=== PATIENT | male | born 1980 | race Caucasian/White ===

== ENCOUNTER 2017-11-14 11:48 | Emergency (ER) | payer SELFPAY ==
[2017-11-14] MEDS ORDERED: predniSONE 20 MG TAB ONE (13:56)
--- NOTE | 2017-11-14 13:57 | EDPHYS ---
Physician Documentation [facility] Name: Valentín Ho Age: 37 yrs Sex: Male : 1980 Arrival Date: 11/14/2017 Time: 11:51 Bed 18 Private MD: None, None ED Physician Narinder Sanders HPI: 11/14 13:51 This 37 yrs old Male presents to ER via Ambulatory with complaints of Hand gretchen Pain. 13:51 The patient or guardian reports decreased range of motion, pain. The complaints affect gretchen the right hand diffusely, dorsum of right hand and dorsal aspect of right wrist. Context: The problem was sustained at home, resulted from an unknown cause, sleeping on it, all night. Onset: The symptoms/episode began/occurred today. Modifying factors: The symptoms are alleviated by holding still, the symptoms are aggravated by movement. Associated signs and symptoms: The patient has no apparent associated signs or symptoms. Severity of symptoms: At their worst the symptoms were mild, moderate, in the emergency department the symptoms are unchanged. The patient has not experienced similar symptoms in the past. Historical: - Allergies: 12:03 No Known Allergies; aj - Home Meds: 12:03 None [Active]; aj - PMHx: 12:03 Chronic pain; aj - PSHx: 12:03 None; aj - Immunization history:: Adult Immunizations up to date. - Social history:: Smoking status: Patient uses tobacco products, smokes one-half pack cigarettes per day. - Ebola Screening: : Patient negative for fever greater than or equal to 101.5 degrees Fahrenheit, and additional compatible Ebola Virus Disease symptoms Patient denies exposure to infectious person Patient denies travel to an Ebola-affected area in the 21 days before illness onset No symptoms or risks identified at this time. - Family history:: not pertinent. ROS: 13:51 Constitutional: Negative for fever, chills, and weight loss, Eyes: Negative for injury, gretchen pain, redness, and discharge, ENT: Negative for injury, pain, and discharge, Neck: Negative for injury, pain, and swelling, Cardiovascular: Negative for chest pain, palpitations, and edema, Respiratory: Negative for shortness of breath, cough, wheezing, and pleuritic chest pain, Abdomen/GI: Negative for abdominal pain, nausea, vomiting, diarrhea, and constipation, Back: Negative for injury and pain, : Negative for injury, bleeding, discharge, and swelling, Skin: Negative for injury, rash, and discoloration, Neuro: Negative for headache, weakness, numbness, tingling, and seizure, Psych: Negative for depression, anxiety, suicide ideation, homicidal ideation, and hallucinations, Allergy/Immunology: Negative for hives, rash, and allergies, Endocrine: Negative for neck swelling, polydipsia, polyuria, polyphagia, and marked weight changes, Hematologic/Lymphatic: Negative for swollen nodes, abnormal bleeding, and unusual bruising. 13:51 MS/extremity: Positive for decreased range of motion, pain, of the dorsum of right hand and dorsal aspect of right wrist. Exam: 13:51 Constitutional: This is a well developed, well nourished patient who is awake, alert, gretchen and in no acute distress. Head/Face: Normocephalic, atraumatic. Eyes: Pupils equal round and reactive to light, extra-ocular motions intact. Lids and lashes normal. Conjunctiva and sclera are non-icteric and not injected. Cornea within normal limits. Periorbital areas with no swelling, redness, or edema. ENT: Nares patent. No nasal discharge, no septal abnormalities noted. Tympanic membranes are normal and external auditory canals are clear. Oropharynx with no redness, swelling, or masses, exudates, or evidence of obstruction, uvula midline. Mucous membranes moist. Neck: Trachea midline, no thyromegaly or masses palpated, and no cervical lymphadenopathy. Supple, full range of motion without nuchal rigidity, or vertebral point tenderness. No Meningismus. Chest/axilla: Normal chest wall appearance and motion. Nontender with no deformity. No lesions are appreciated. Cardiovascular: Regular rate and rhythm with a normal S1 and S2. No gallops, murmurs, or rubs. Normal PMI, no JVD. No pulse deficits. Respiratory: Lungs have equal breath sounds bilaterally, clear to auscultation and percussion. No rales, rhonchi or wheezes noted. No increased work of breathing, no retractions or nasal flaring. Abdomen/GI: Soft, non-tender, with normal bowel sounds. No distension or tympany. No guarding or rebound. No evidence of tenderness throughout. Back: No spinal tenderness. No costovertebral tenderness. Full range of motion. Male : Normal genitalia with no discharge or lesions. Skin: Warm, dry with normal turgor. Normal color with no rashes, no lesions, and no evidence of cellulitis. MS/ Extremity: Pulses equal, no cyanosis. Neurovascular intact. Full, normal range of motion. Psych: Awake, alert, with orientation to person, place and time. Behavior, mood, and affect are within normal limits. 13:51 Neuro: Orientation: is normal, appropriate for stated age, no acute changes, Mentation: is normal, appropriate for stated age, no acute changes, Memory: is normal, appropriate for stated age, no acute changes, Motor: cannot extend wrist or fingers, Sensation: is normal, no obvious gross deficits, appropriate Gait: is steady. Vital Signs: 12:03 BP 106 / 75; Pulse 73; Resp 16; Temp 97.7; Pulse Ox 99% on R/A; Weight 68.04 kg; Height aj 5 ft. 10 in. (177.80 cm); 13:41 BP 102 / 61; Pulse 66; Resp 17; Pulse Ox 98% on R/A; tw2 15:07 BP 106 / 66; Pulse 72; Resp 17; Pulse Ox 99% on R/A; tw2 12:03 Body Mass Index 21.52 (68.04 kg, 177.80 cm) MDM: 12:07 Patient medically screened. [facility] 13:51 Data reviewed: vital signs, nurses notes, radiologic studies, plain films. [facility] 11/14 13:50 Order name: Elbow Right 3 View XRAY [facility] 11/14 13:50 Order name: Humerus Right XRAY [facility] 11/14 13:50 Order name: Chest Single View XRAY [facility] 11/14 13:50 Order name: C Spine Ap/Lat XRAY [facility] Administered Medications: 13:54 Drug: predniSONE 60 mg Route: PO; tw2 15:06 Follow up: Response: No adverse reaction tw2 Disposition: 11/14/17 13:56 Discharged to Home. Impression: Injury of radial nerve at wrist and hand level of right arm. - Condition is Stable. - Discharge Instructions: Radial Nerve Palsy. - Prescriptions for Medrol (Raphael) 4 mg Oral Tablets, Dose Pack - take 1 tablet by ORAL route as directed - follow package instructions; 1 packet. Motrin IB 200 mg Oral Tablet - take 2 tablet by ORAL route every 6 hours As needed as needed with food; 30 tablet. - Medication Reconciliation Form, Thank You Letter, Antibiotic Education, Prescription Opioid Use form. - Follow up: Private Physician; When: 2 - 3 days; Reason: Recheck today's complaints, Continuance of care, Re-evaluation by your physician. Follow up: Salvador Drew MD; When: 2 - 3 days; Reason: Recheck today's complaints, Continuance of care, Re-evaluation by your physician. Follow up: Javier Slaughter MD; When: 2 - 3 days; Reason: Recheck today's complaints, Re-evaluation by your physician. - Problem is new. - Symptoms are unchanged. Signatures: Dispatcher [employer] EDKay Haimlton RN RN aj Anderson, Corey, MD MD cha Wise, Tara, RN RN tw2 Corrections: (The following items were deleted from the chart) 13:57 13:56 11/14/2017 13:56 Discharged to Home. Impression: Injury of radial nerve at wrist gretchen and hand level of right arm. Condition is Stable. Forms are Medication Reconciliation Form, Thank You Letter, Antibiotic Education, Prescription Opioid Use. Follow up: Private Physician; When: 2 - 3 days; Reason: Recheck today's complaints, Continuance of care, Re-evaluation by your physician. Follow up: Salvador Drew; When: 2 - 3 days; Reason: Recheck today's complaints, Continuance of care, Re-evaluation by your physician. Problem is new. Symptoms are unchanged. [facility] 15:06 13:55 Splint - Wrist ordered. [facility] tw2 15:07 13:57 11/14/2017 13:56 Discharged to Home. Impression: Injury of radial nerve at wrist tw2 and hand level of right arm. Condition is Stable. Discharge Instructions: Radial Nerve Palsy. Prescriptions for Medrol (Raphael) 4 mg Oral Tablets, Dose Pack - take 1 tablet by ORAL route as directed - follow package instructions; 1 packet, Motrin IB 200 mg Oral Tablet - take 2 tablet by ORAL route every 6 hours As needed as needed with food; 30 tablet. and Forms are Medication Reconciliation Form, Thank You Letter, Antibiotic Education, Prescription Opioid Use. Follow up: Private Physician; When: 2 - 3 days; Reason: Recheck today's complaints, Continuance of care, Re-evaluation by your physician. Follow up: Salvador Drew; When: 2 - 3 days; Reason: Recheck today's complaints, Continuance of care, Re-evaluation by your physician. Follow up: Javier Slaughter; When: 2 - 3 days; Reason: Recheck today's complaints, Re-evaluation by your physician. Problem is new. Symptoms are unchanged. gretchen
--- NOTE | 2017-11-14 13:57 | ER ---
Nurse's Notes [facility] Name: Valentín Ho Age: 37 yrs Sex: Male : 1980 Arrival Date: 11/14/2017 Time: 11:51 Bed 18 Private MD: None, None Diagnosis: Injury of radial nerve at wrist and hand level of right arm Presentation: 11/14 12:01 Presenting complaint: Patient states: Reports "loss of motor function in right hand" aj that started this AM. Patient is using right hand in triage and used right hand to sign registration forms. Patient fell asleep while being registered. Pupils are pinpoint. 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 Transition of care: patient was not received from another setting of care. Onset of symptoms was November 14, 2017. Risk Assessment: Do you want to hurt yourself or someone else? Patient reports no desire to harm self or others. Initial Sepsis Screen: Does the patient meet any 2 criteria? No. Patient's initial sepsis screen is negative. Does the patient have a suspected source of infection? No. Patient's initial sepsis screen is negative. Care prior to arrival: None. 12:01 Method Of Arrival: Ambulatory 12:01 Acuity: CHELY 4 aj Triage Assessment: 12:03 General: Appears in no apparent distress. comfortable, Behavior is calm, cooperative, aj appropriate for age. Pain: Denies pain. Neuro: Level of Consciousness is awake, alert, obeys commands, Oriented to person, place, time, situation, Appropriate for age Numbness in right arm. Respiratory: Airway is patent Respiratory effort is even, unlabored, Respiratory pattern is regular, symmetrical. Derm: Skin is intact, is healthy with good turgor, Skin is pink, warm \\T\\ dry. normal. Historical: - Allergies: 12:03 No Known Allergies; aj - Home Meds: 12:03 None [Active]; aj - PMHx: 12:03 Chronic pain; aj - PSHx: 12:03 None; aj - Immunization history:: Adult Immunizations up to date. - Social history:: Smoking status: Patient uses tobacco products, smokes one-half pack cigarettes per day. - Ebola Screening: : Patient negative for fever greater than or equal to 101.5 degrees Fahrenheit, and additional compatible Ebola Virus Disease symptoms Patient denies exposure to infectious person Patient denies travel to an Ebola-affected area in the 21 days before illness onset No symptoms or risks identified at this time. - Family history:: not pertinent. Screenin:08 Abuse screen: Denies threats or abuse. Nutritional screening: No deficits noted. tw2 Tuberculosis screening: No symptoms or risk factors identified. Fall Risk None identified. Assessment: 12:06 General: Appears in no apparent distress. unkempt, Behavior is drowsy. Pain: Complains tw2 of pain in right arm. Neuro: Level of Consciousness is obeys commands, Oriented to person, situation. Cardiovascular: Denies chest pain, shortness of breath, Capillary refill < 3 seconds Patient's skin is warm and dry. Respiratory: Airway is patent Respiratory effort is even, unlabored, Respiratory pattern is regular, symmetrical. GI: No signs and/or symptoms were reported involving the gastrointestinal system. : No signs and/or symptoms were reported regarding the genitourinary system. EENT: No signs and/or symptoms were reported regarding the EENT system. Derm: Skin is intact, is healthy with good turgor, Skin temperature is warm. Musculoskeletal: Range of motion: intact in all extremities, Swelling present in right hand Reports numbness in right hand and right arm "sometimes it cramps up" pt able to reach for and grab television remote. 13:09 Reassessment: Patient appears in no apparent distress at this time. No changes from tw2 previously documented assessment. Patient and/or family updated on plan of care and expected duration. Pain level reassessed. Patient is alert, oriented x 3, equal unlabored respirations, skin warm/dry/pink. 13:40 Reassessment: pts mother at bedside at this time asking "what is the plan for him, im tw2 ready to give him a ride home" provider notified. pt is asleep at this time, NAD. 13:45 Reassessment: provider at bedside at this time. iw 15:06 Reassessment: Patient appears in no apparent distress at this time. No changes from tw2 previously documented assessment. Patient and/or family updated on plan of care and expected duration. Pain level reassessed. Patient is alert, oriented x 3, equal unlabored respirations, skin warm/dry/pink. Vital Signs: 12:03 BP 106 / 75; Pulse 73; Resp 16; Temp 97.7; Pulse Ox 99% on R/A; Weight 68.04 kg; Height aj 5 ft. 10 in. (177.80 cm); 13:41 BP 102 / 61; Pulse 66; Resp 17; Pulse Ox 98% on R/A; tw2 15:07 BP 106 / 66; Pulse 72; Resp 17; Pulse Ox 99% on R/A; tw2 12:03 Body Mass Index 21.52 (68.04 kg, 177.80 cm) ED Course: 11:51 Patient arrived in ED. mr 11:51 None, None is Private Physician. mr 12:03 Triage completed. aj 12:03 Arm band placed on left wrist. Patient placed in an exam room. aj 12:05 Ivy Dowling, HUBER is Primary Nurse. tw2 12:07 Narinder Sanders MD is Attending Physician. gretchen 12:08 Bed in low position. Call light in reach. Side rails up X2. Pulse ox on. NIBP on. tw2 13:56 Salvador Drew MD is Referral Physician. gretchen 13:57 Awaiting for x-ray, Awaiting: and results PRIOR to discharge. tw2 13:57 Javier Slaughter MD is Referral Physician. gretchen 14:25 X-ray completed. Patient tolerated procedure well. Patient moved back from radiology. jb2 14:26 Elbow Right 3 View XRAY In Process Unspecified. EDMS 14:26 Humerus Right XRAY In Process Unspecified. EDMS 14:27 Chest Single View XRAY In Process Unspecified. EDMS 14:27 C Spine Ap/Lat XRAY In Process Unspecified. EDMS 15:07 No provider procedures requiring assistance completed. Patient did not have IV access tw2 during this emergency room visit. Administered Medications: 13:54 Drug: predniSONE 60 mg Route: PO; tw2 15:06 Follow up: Response: No adverse reaction tw2 Outcome: 13:56 Discharge ordered by . gretchen 15:07 Discharged to home ambulatory, with family. tw2 15:07 Condition: stable 15:07 Discharge instructions given to patient, family, Instructed on discharge instructions, follow up and referral plans. medication usage, Demonstrated understanding of instructions, follow-up care, medications, splint care, Prescriptions given X 1. 15:07 Patient left the ED. tw2 Signatures: Dispatcher [facility] Kay Thompson RN RN aj Anderson, Corey, MD MD cha Rivera, Maria mr Raphael, Herman jb2 Ashia Rosa RN RN iw Wise, Tara, RN RN tw2 Corrections: (The following items were deleted from the chart) 13:10 12:06 Musculoskeletal: Range of motion: intact in all extremities, Swelling present in tw2 right hand Reports numbness in right hand and right arm tw2
--- NOTE | 2017-11-14 14:36 | RAD REPORT ---
EXAM DESCRIPTION: RAD - C Spine Ap/Lat - 11/14/2017 2:27 pm CLINICAL HISTORY: Pain, decreased motor function right upper extremity COMPARISON: None. FINDINGS: Cervical bodies are normal in height and alignment. No fracture or acute bony process seen . No disc space narrowing. Right-sided spurring changes are present. There is no prevertebral soft tissue thickening or other suspicious soft tissue finding. IMPRESSION: Right-sided degenerative spurring with no acute bone or disc finding. Concerns for disc herniation, central canal abnormality or foraminal stenosis can be addressed with M R imaging.
--- NOTE | 2017-11-14 14:44 | RAD REPORT ---
EXAM DESCRIPTION: RAD - Chest Single View - 11/14/2017 2:33 pm CLINICAL HISTORY: Chest pain COMPARISON: Trauma CT December 2015 TECHNIQUE: AP portable chest image was obtained 1410 hours . FINDINGS: No focal lung parenchymal process seen. No failure or volume overload. Trachea is midline. Heart and vasculature are normal. No measurable pleural effusion and no pneumothorax. No gross bony abnormality seen. No acute aortic findings suspected. IMPRESSION: No acute cardiopulmonary process.
--- NOTE | 2017-11-14 14:45 | RAD REPORT ---
EXAM DESCRIPTION: RAD - Humerus Right - 11/14/2017 2:27 pm CLINICAL HISTORY: Right arm pain, decreased motor function right upper extremity COMPARISON: None. FINDINGS: No fracture is identified. There is no dislocation or periosteal reaction noted. No foreig n body or other soft tissue abnormality. IMPRESSION: Negative right humerus examination.
--- NOTE | 2017-11-14 14:45 | RAD REPORT ---
EXAM DESCRIPTION: RAD - Elbow Right 3 View - 11/14/2017 2:27 pm CLINICAL HISTORY: Right elbow pain, decreased right upper extremity motor function COMPARISON: None. FINDINGS: No fracture is identified and no elevated posterior fat pad. There is no dislocation or pe riosteal reaction noted. No foreign body or other soft tissue abnormality. No other significant findi ng. IMPRESSION: Negative right elbow examination.
== END 2017-11-14 15:07 | disposition home or self-care (01) ==
LOC: ER 11:48
DX: S64.21XA Injury of radial nerve at wrist and hand level of right arm, initial encounter (principal); F17.210 Nicotine dependence, cigarettes, uncomplicated; X58.XXXA Exposure to other specified factors, initial encounter; Y93.89 Activity, other specified; Y92.009 Unspecified place in unspecified non-institutional (private) residence as the place of occurrence of the external cause; Y99.9 Unspecified external cause status
CPT/HCPCS: 71045; 72040; 99284; J7512

== ENCOUNTER 2018-08-14 16:27 | Emergency (ER) | payer SELFPAY ==
--- NOTE | 2018-08-14 17:34 | RAD REPORT ---
EXAM DESCRIPTION: Jennifer Single View08/14/2018 5:13 pm CLINICAL HISTORY: Chest pain COMPARISON: October 2017 FINDINGS: The lungs appear clear of acute infiltrate. The heart is normal size IMPRESSION: No acute abnormalities displayed
[2018-08-14] MEDS ORDERED: KETOROLAC 30 MG/ML INJ ONE (18:09)
[2018-08-14 18:14] LABS: Protime INR 0.99
[2018-08-14 18:20] LABS: ALT/SGPT 24 U/L (12-78); AST/SGOT 12 U/L (15-37); Absolute Lymphocytes (CBC) 1.7 K/uL (0.7-4.9); Absolute Monocytes 0.5 K/uL (0.1-1.3); Absolute Neutrophil 5.1 K/uL (1.8-8.0); Albumin 4.1 g/dL (3.4-5.0); Alkaline Phosphatase 80 U/L (45-117); BUN Blood Urea Nitrogen 10 mg/dL (7-18); Basophils % 0.1 % (0-1.3); Bicarbonate 28 mmol/L (21-32); Bilirubin Direct < 0.1 mg/dL (0-0.2); Bilirubin Total 0.3 mg/dL (0.2-1.0); Glucose Level 91 mg/dL (74-106); Hematocrit 45.1 % (39.6-49.0); Lymphocytes % 23.4 % (15.3-44.8); MPV 8.5 fL (7.6-11.3); Magnesium 2.1 mg/dL (1.8-2.4); Monocytes % 6.5 % (3.3-12.3); NT PRO-BNP 73 pg/mL (<125); Potassium 3.8 mmol/L (3.5-5.1); Protein, Total 7.4 g/dL (6.4-8.2); RBC Red Blood Cell Count 4.92 M/uL (4.33-5.43); Sodium Level 143 mmol/L (136-145); Troponin (Emerg Dept Use Only) < 0.02 ng/mL (0.0-0.045)
--- NOTE | 2018-08-14 19:24 | EDPHYS ---
Physician Documentation [facility] Name: Valentín Ho Age: 37 yrs Sex: Male : 1980 Arrival Date: 08/14/2018 Time: 16:27 Bed 15 Private MD: ED Physician Kang Vivas HPI: 08/14 16:52 This 37 yrs old Male presents to ER via EMS with complaints of Chest Pain. [facility] 16:52 The patient or guardian reports chest pain that is located primarily in the substernal [facility] area. The pain does not radiate. Associated signs and symptoms: Pertinent positives: shortness of breath, Pertinent negatives:. The chest pain is described as throbbing. Duration: The patient or guardian reports a single episode, that is still ongoing. Modifying factors: The symptoms are alleviated by nothing. the symptoms are aggravated by nothing. EMS care prior to arrival includes: aspirin. This is a 37 year old male with a history of chronic pain that presents to the ED with complaints of substernal chest pain described as throbbing beignning yesterday. Pain has been constant since. Patient denies recreational drug use. States he smokes occasionally. Denies family history of CAD. . Historical: - Allergies: 16:20 No Known Allergies; rb1 - Home Meds: 16:20 None [Active]; rb1 - PMHx: 16:20 Chronic pain; rb1 - PSHx: 16:20 None; rb1 - Immunization history:: Adult Immunizations up to date. - Social history:: Smoking status: Patient uses tobacco products, denies chronic smoking, but will smoke occasionally. - Ebola Screening: : Patient negative for fever greater than or equal to 101.5 degrees Fahrenheit, and additional compatible Ebola Virus Disease symptoms. ROS: 16:52 Constitutional: Negative for fever, chills, and weight loss. jmm 16:52 Abdomen/GI: Negative for abdominal pain, nausea, vomiting, diarrhea, and constipation, Back: Negative for injury and pain, MS/Extremity: Negative for injury and deformity, Skin: Negative for injury, rash, and discoloration, Neuro: Negative for headache, weakness, numbness, tingling, and seizure. 16:52 Cardiovascular: Positive for chest pain. 16:52 Respiratory: Positive for shortness of breath. 16:52 All other systems are negative. Exam: 16:45 ECG was reviewed by the Attending Physician. [facility] 16:52 Constitutional: This is a well developed, well nourished patient who is awake, alert, jmm and in no acute distress. Head/Face: atraumatic. Eyes: EOMI, no conjunctival erythema appreciated ENT: Moist Mucus Membranes Neck: Trachea midline, Supple Chest/axilla: Normal chest wall appearance and motion. Cardiovascular: Regular rate and rhythm. No edema appreciated Respiratory: Normal respirations, no respiratory distress appreciated Abdomen/GI: Non distended, soft Back: Normal ROM 16:52 Cardiovascular: Rate: normal, Rhythm: regular. 16:52 Respiratory: the patient does not display signs of respiratory distress, Respirations: normal, Breath sounds: are clear throughout. 16:52 Musculoskeletal/extremity: ROM: intact in all extremities. 16:52 Skin: Appearance: Color: normal in color. 16:52 Neuro: Orientation: is normal, Mentation: is normal, Memory: is normal. 16:52 Psych: Behavior/mood is pleasant, cooperative. Vital Signs: 16:20 BP 119 / 77; Pulse 67; Resp 16; Temp 98.2(O); Pulse Ox 100% on R/A; Weight 68.04 kg rb1 (R); Height 5 ft. 10 in. (177.80 cm) (R); Pain 5/10; 17:20 BP 117 / 81; Pulse 66; Resp 23; Pulse Ox 100% on R/A; rb1 18:06 BP 121 / 78; Pulse 65; Resp 17; Pulse Ox 100% ; mh5 19:00 BP 113 / 79; Pulse 78; Resp 16; Pulse Ox 100% ; jb4 16:20 Body Mass Index 21.52 (68.04 kg, 177.80 cm) rb1 MDM: 16:46 Patient medically screened. [facility] 19:22 Data reviewed: vital signs, nurses notes, lab test result(s), EKG, radiologic studies. [facility] ED course: PERC NEGATIVE. HEART SCORE = 1. I DO NOT CURRENTLY SUSPECT ACS OR PE AT THIS TIME. PATIENT ADVISED TO FOLLOW UP WITH CARDIOLOGY FOR FURTHER EVALUASTION. PATIENT WAS OTHERWISE GIVEN STRICT RETURN PRECAUTIONS. . 08/14 16:52 Order name: Basic Metabolic Panel; Complete Time: 18:22 [facility] 08/14 16:52 Order name: CBC with Diff; Complete Time: 18:28 [facility] 08/14 16:52 Order name: LFT's; Complete Time: 18:22 [facility] 08/14 16:52 Order name: Magnesium; Complete Time: 18:22 08/14 16:52 Order name: NT PRO-BNP; Complete Time: 18:22 [facility] 08/14 16:52 Order name: PT-INR; Complete Time: 18:20 [facility] 08/14 16:52 Order name: Troponin (emerg Dept Use Only); Complete Time: 18:22 [facility] 08/14 16:52 Order name: XRAY Chest (1 view); Complete Time: 17:39 08/14 16:52 Order name: EKG; Complete Time: 16:53 [facility] 08/14 16:52 Order name: Cardiac monitoring; Complete Time: 18:06 08/14 16:52 Order name: EKG - Nurse/Tech; Complete Time: 19:08/14 16:52 Order name: IV Saline Lock; Complete Time: 19: [facility] 08/14 16:52 Order name: Labs collected and sent; Complete Time: 19:08/14 16:52 Order name: O2 Per Protocol; Complete Time: 19:08/14 16:52 Order name: O2 Sat Monitoring; Complete Time: 19: EC:45 Rate is 71 beats/min. Rhythm is regular. QRS [place] is Normal. DC interval is normal. QRS jmm interval is normal. QT interval is normal. No Q waves. T waves are Normal. No ST changes noted. Administered Medications: 18:05 Drug: Ketorolac 30 mg Route: IVP; Site: right forearm; rb1 18:20 Follow up: Response: No adverse reaction; Pain is unchanged, physician notified; No new rb1 order received at this time Disposition: 21:49 Co-signature as Attending Physician, Kang Vivas MD. Disposition: 08/14/18 19:24 Discharged to Home. Impression: Chest pain, unspecified. - Condition is Stable. - Discharge Instructions: Nonspecific Chest Pain. - Medication Reconciliation Form, Thank You Letter, Antibiotic Education, Prescription Opioid Use form. - Follow up: Private Physician; When: 2 - 3 days; Reason: Recheck today's complaints, Continuance of care, Re-evaluation by your physician. Signatures: Dispatcher [employer] EDMS Ashu Messina PA PA jmm Barber, Rebecca, RN RN [facility] Eduardo Martínez RN RN jb4 Kang Vivas MD MD gs Corrections: (The following items were deleted from the chart) 19:40 19:24 08/14/2018 19:24 Discharged to Home. Impression: Chest pain, unspecified. jb4 Condition is Stable. Forms are Medication Reconciliation Form, Thank You Letter, Antibiotic Education, Prescription Opioid Use. Follow up: Private Physician; When: 2 - 3 days; Reason: Recheck today's complaints, Continuance of care, Re-evaluation by your physician. jina
--- NOTE | 2018-08-14 19:24 | ER ---
Nurse's Notes [facility] Name: Valentín Ho Age: 37 yrs Sex: Male : 1980 Arrival Date: 08/14/2018 Time: 16:27 Bed 15 Private MD: Diagnosis: Chest pain, unspecified Presentation: 08/14 16:20 Presenting complaint: EMS states: Pt. went to [facility] yesterday and as he entered the [facility] rb1 he began having chest pain in the center of his chest, the pain does not radiate. C/o shortness of breath. No medical history or medications. NKDA, vital signs are stable, SR 72 on 12-Lead. Administered Aspirin 324 mg x 1. Pain 5/10. Onset of symptoms was August 13, 2018. Risk Assessment: Do you want to hurt yourself or someone else? Patient reports no desire to harm self or others. Initial Sepsis Screen: Does the patient meet any 2 criteria? No. Patient's initial sepsis screen is negative. Does the patient have a suspected source of infection? No. Patient's initial sepsis screen is negative. Care prior to arrival: Medication(s) given: ASA, 81 mg, x 4. 16:20 Method Of Arrival: EMS: [facility] 16:20 Acuity: CHELY 3 rb1 16:28 Transition of care: [facility]. 16:28 Method Of Arrival: [employer] Enforcement: [facility] Triage Assessment: 16:20 General: Appears in no apparent distress. comfortable, Behavior is calm, cooperative, rb1 Denies fever. Pain: Complains of pain in mid-sternal area Pain currently is 5 out of 10 on a pain scale. Pain began x 1 day ago. Neuro: Level of Consciousness is awake, alert, obeys commands, Oriented to person, place, time, situation. Cardiovascular: Capillary refill < 3 seconds is brisk in bilateral fingers. Respiratory: Airway is patent Respiratory effort is even, unlabored, Respiratory pattern is regular, symmetrical. GI: Reports nausea. : No signs and/or symptoms were reported regarding the genitourinary system. Derm: Skin is pink, warm \T\ dry. Musculoskeletal: Range of motion: intact in all extremities. Historical: - Allergies: 16:20 No Known Allergies; rb1 - Home Meds: 16:20 None [Active]; rb1 - PMHx: 16:20 Chronic pain; rb1 - PSHx: 16:20 None; rb1 - Immunization history:: Adult Immunizations up to date. - Social history:: Smoking status: Patient uses tobacco products, denies chronic smoking, but will smoke occasionally. - Ebola Screening: : Patient negative for fever greater than or equal to 101.5 degrees Fahrenheit, and additional compatible Ebola Virus Disease symptoms. Screenin:20 Abuse screen: Denies threats or abuse. Nutritional screening: No deficits noted. rb1 Tuberculosis screening: No symptoms or risk factors identified. Fall Risk None identified. Assessment: 16:20 Pain: Pain does not radiate. rb1 17:20 Reassessment: Patient appears in no apparent distress at this time. No changes from rb1 previously documented assessment. 18:20 Reassessment: Patient appears in no apparent distress at this time. Patient and/or rb1 family updated on plan of care and expected duration. Pain level reassessed. Patient is alert, oriented x 3, equal unlabored respirations, skin warm/dry/pink. 19:37 Reassessment: Patient appears in no apparent distress at this time. Patient and/or jb4 family updated on plan of care and expected duration. Pain level reassessed. Patient is alert, oriented x 3, equal unlabored respirations, skin warm/dry/pink. PT discharged to [employer]. Pt ambulated out of ED with steady gait. IV discontinued. D/c instructions to Law Enforcement and pt. Vital Signs: 16:20 BP 119 / 77; Pulse 67; Resp 16; Temp 98.2(O); Pulse Ox 100% on R/A; Weight 68.04 kg rb1 (R); Height 5 ft. 10 in. (177.80 cm) (R); Pain 5/10; 17:20 BP 117 / 81; Pulse 66; Resp 23; Pulse Ox 100% on R/A; rb1 18:06 BP 121 / 78; Pulse 65; Resp 17; Pulse Ox 100% ; mh5 19:00 BP 113 / 79; Pulse 78; Resp 16; Pulse Ox 100% ; jb4 16:20 Body Mass Index 21.52 (68.04 kg, 177.80 cm) [facility] ED Course: 16:20 Patient maintains SpO2 saturation greater than 95% on room air. rb1 16:20 Arm band placed on right wrist. rb1 16:20 Patient has correct armband on for positive identification. Bed in low position. Call rb1 light in reach. Side rails up X2. [place] [employer] at bedside. case monitor on. Pulse ox on. NIBP on. Warm blanket given. 16:27 Patient arrived in ED. ss 16:32 Mireya Leavitt, RN is Primary Nurse. rb1 16:34 EKG done, by systems technician. reviewed by Gwyn Dumont MD. 3 16:35 Triage completed. rb1 16:40 Ashu Messina PA is PHCP. m 16:40 Kang Vivas MD is Attending Physician. jmm 17:11 X-ray completed. Portable x-ray completed in exam room. Patient tolerated procedure ml well. 17:14 XRAY Chest (1 view) In Process Unspecified. EDMS 17:30 Inserted saline lock: 22 gauge in right forearm, using aseptic technique. Blood rb1 collected. 18:55 Report given to HUBER Zafar. rb1 19:00 No provider procedures requiring assistance completed. IV discontinued, intact, jb4 bleeding controlled. Administered Medications: 18:05 Drug: Ketorolac 30 mg Route: IVP; Site: right forearm; rb1 18:20 Follow up: Response: No adverse reaction; Pain is unchanged, physician notified; No new rb1 order received at this time Intake: Outcome: 19:24 Discharge ordered by . jina 19:39 Discharged to Law Enforcement jb4 19:39 Condition: stable 19:39 Discharge instructions given to patient, police, Instructed on discharge instructions, follow up and referral plans. Demonstrated understanding of instructions, follow-up care. 19:40 Patient left the ED. jb4 Signatures: Dispatcher [employer] EDMS Ashu Messina PA PA jmm Lopez, Melissa ml Smirch, Shelby, RN RN Mireya Leavitt, RN RN rb1 Eduardo Martínez RN RN jbPippa Thompson Brigida Alberto [facility]
--- NOTE | 2018-08-14 21:38 | EKG ---
Test Date: 2018-08-14 Test Time: 16:30:04 Director Of Engineering: SHANA MEASUREMENT RESULTS: Intervals: Rate: 71 SC: 120 QRSD: 104 QT: 384 QTc: 417 [place]: P: 57 SC: 120 QRS: 86 T: 68 INTERPRETIVE STATEMENTS: Normal sinus rhythm Normal ECG Compared to ECG 12/28/2015 21:56:09 No significant changes Electronically Signed On 08-14-18 21:38:06 CDT by Silvestre Downs
== END 2018-08-14 19:40 | disposition home or self-care (01) ==
LOC: ER 16:27
DX: R07.9 Chest pain, unspecified (principal); Z72.0 Tobacco use
CPT/HCPCS: 36415; 71045; 80048; 80076; 83735; 83880; 84484; 85025; 85610; 93005

== ENCOUNTER → 2018-08-15 | Emergency (ER) | payer SELFPAY ==
--- NOTE | 2018-08-15 12:58 | ER ---
Nurse's Notes [facility] Name: Valentín Ho Age: 37 yrs Sex: Male : 1980 Arrival Date: 08/15/2018 Time: 12:03 Bed 16 Private MD: Diagnosis: Person with feared health complaint in whom no diagnosis is made;Chest pain, unspecified Presentation: 08/15 12:00 Presenting complaint: EMS states: CP that began 2 days ago after being incarcerated. Pt ss was evaluated in ER yesterday for same complaint and discharged back to [facility] with law enforcement with non specific chest pain. Transition of care: patient was not received from another setting of care. Onset of symptoms was August 13, 2018. Risk Assessment: Do you want to hurt yourself or someone else? Patient reports no desire to harm self or others. Initial Sepsis Screen: Does the patient meet any 2 criteria? No. Patient's initial sepsis screen is negative. Does the patient have a suspected source of infection? No. Patient's initial sepsis screen is negative. Care prior to arrival: None. 12:00 Method Of Arrival: EMS: [facility] ss 12:00 Acuity: CHELY 3 ss Triage Assessment: 12:16 General: Appears in no apparent distress. comfortable, Behavior is cooperative, bp appropriate for age, anxious. Pain: Complains of pain in chest. EENT: No deficits noted. Neuro: Level of Consciousness is awake, alert, obeys commands, Oriented to person, place, time, situation, Appropriate for age. Cardiovascular: No deficits noted. Respiratory: Airway is patent Respiratory effort is even, unlabored, Respiratory pattern is regular, symmetrical. GI: No signs and/or symptoms were reported involving the gastrointestinal system. : No signs and/or symptoms were reported regarding the genitourinary system. Derm: No deficits noted. Musculoskeletal: Circulation, motion, and sensation intact. Range of motion:. Historical: - Allergies: 12:16 No Known Allergies; bp - Home Meds: 12:16 None [Active]; bp - PMHx: 12:16 Chronic pain; bp - Immunization history:: Adult Immunizations up to date. - Social history:: Smoking status: Patient uses tobacco products, unknown amount. - Ebola Screening: : Patient negative for fever greater than or equal to 101.5 degrees Fahrenheit, and additional compatible Ebola Virus Disease symptoms Patient denies exposure to infectious person Patient denies travel to an Ebola-affected area in the 21 days before illness onset No symptoms or risks identified at this time. Screenin:18 Abuse screen: Denies threats or abuse. Denies injuries from another. Nutritional bp screening: No deficits noted. Tuberculosis screening: No symptoms or risk factors identified. Fall Risk None identified. Assessment: 12:18 General: SEE TRIAGE NOTE. bp 13:06 Reassessment: PT D/C IN PD [facility], DX WITH NON-SPECIFIC CHEST PAIN AND bp HEALTH FEARS. Vital Signs: 12:11 BP 112 / 69; Pulse 66; Resp 18; Temp 98.1(O); Pulse Ox 100% on R/A; mh5 13:05 BP 114 / 73; Pulse 66; Resp 16; Temp 98.2; Pulse Ox 100% ; bp ED Course: 12:03 Patient arrived in ED. bp 12:06 Javon Perez, RN is Primary Nurse. bp 12:14 Triage completed. ss 12:17 Arm band placed on. bp 12:19 Patient has correct armband on for positive identification. Bed in low position. Call bp light in reach. Side rails up X2. Adult w/ patient. Security at bedside. 12:21 Elvi Lancaster FNP-C [facility]. snw 12:21 Michael Sanchez MD is Attending Physician. snw 12:35 EKG done, by ceramics technician. reviewed by Elvi LAY. at1 13:06 No provider procedures requiring assistance completed. Patient did not have IV access bp during this emergency room visit. Administered Medications: No medications were administered Outcome: 12:58 Discharge ordered by . snw 13:07 Discharged to Law Enforcement bp 13:07 Condition: stable 13:07 Discharge instructions given to patient, police, Instructed on discharge instructions, follow up and referral plans. Demonstrated understanding of instructions, follow-up care. 13:09 Patient left the ED. bp Signatures: Elvi Lancaster FNP-C FNP-Ann Cody RN RN Kay Cisneros, geographic information system surveyor EKG Tat1 Pippa Guerrero 5 Javon Perez, RN RN bp
--- NOTE | 2018-08-15 12:58 | EDPHYS ---
Physician Documentation [facility] Name: Valentín Ho Age: 37 yrs Sex: Male : 1980 Arrival Date: 08/15/2018 Time: 12:03 Bed 16 Private MD: ED Physician Michael Sanchez HPI: 08/15 13:57 This 37 yrs old Male presents to ER via EMS with complaints of chest pain and snw shortness of breath. 13:57 The patient or guardian reports chest pain that is located primarily in the anterior snw chest wall, bilaterally. The pain does not radiate. Associated signs and symptoms: Pertinent positives: None. The chest pain is described as aching. Duration: The patient or guardian reports multiple episodes. Modifying factors: The symptoms are alleviated by rest. Severity of pain: At its worst the pain was moderate in the emergency department the pain has improved. EMS care prior to arrival includes: none. The patient has experienced a previous episode, yesterday. The patient has been recently seen by a physician: The patient has been recently seen at the [facility] Emergency [facility], for similar complaints labs were performed, X-rays were performed, cardiac workup negative. Historical: - Allergies: 12:16 No Known Allergies; bp - Home Meds: 12:16 None [Active]; bp - PMHx: 12:16 Chronic pain; bp - Immunization history:: Adult Immunizations up to date. - Social history:: Smoking status: Patient uses tobacco products, unknown amount. - Ebola Screening: : Patient negative for fever greater than or equal to 101.5 degrees Fahrenheit, and additional compatible Ebola Virus Disease symptoms Patient denies exposure to infectious person Patient denies travel to an Ebola-affected area in the 21 days before illness onset No symptoms or risks identified at this time. ROS: 13:57 Constitutional: Negative for fever, chills, and weight loss, Eyes: Negative for injury, snw pain, redness, and discharge, ENT: Negative for injury, pain, and discharge, Neck: Negative for injury, pain, and swelling, Cardiovascular: Negative for palpitations and edema, + chest pain and shortness of breath x 2-3 days 13:57 Abdomen/GI: Negative for abdominal pain, nausea, vomiting, diarrhea, and constipation, Back: Negative for injury and pain, : Negative for injury, bleeding, discharge, and swelling, MS/Extremity: Negative for injury and deformity, Skin: Negative for injury, rash, and discoloration, Neuro: Negative for headache, weakness, numbness, tingling, and seizure. 13:57 Respiratory: Positive for shortness of breath. Exam: 13:57 Constitutional: This is a well developed, well nourished patient who is awake, alert, snw and in no acute distress. Head/Face: Normocephalic, atraumatic. Eyes: Pupils equal round and reactive to light, extra-ocular motions intact. Lids and lashes normal. Conjunctiva and sclera are non-icteric and not injected. Cornea within normal limits. Periorbital areas with no swelling, redness, or edema. ENT: Nares patent. No nasal discharge, no septal abnormalities noted. Tympanic membranes are normal and external auditory canals are clear. Oropharynx with no redness, swelling, or masses, exudates, or evidence of obstruction, uvula midline. Mucous membranes moist. Neck: Trachea midline, no thyromegaly or masses palpated, and no cervical lymphadenopathy. Supple, full range of motion without nuchal rigidity, or vertebral point tenderness. No Meningismus. Chest/axilla: Normal chest wall appearance and motion. Nontender with no deformity. No lesions are appreciated. Cardiovascular: Regular rate and rhythm with a normal S1 and S2. No gallops, murmurs, or rubs. Normal PMI, no JVD. No pulse deficits. Respiratory: Lungs have equal breath sounds bilaterally, clear to auscultation and percussion. No rales, rhonchi or wheezes noted. No increased work of breathing, no retractions or nasal flaring. Abdomen/GI: Soft, non-tender, with normal bowel sounds. No distension or tympany. No guarding or rebound. No evidence of tenderness throughout. Back: No spinal tenderness. No costovertebral tenderness. Full range of motion. Skin: Warm, dry with normal turgor. Normal color with no rashes, no lesions, and no evidence of cellulitis. MS/ Extremity: Pulses equal, no cyanosis. Neurovascular intact. Full, normal range of motion. Neuro: Awake and alert, GCS 15, oriented to person, place, time, and situation. Cranial nerves II-XII grossly intact. Motor strength 5/5 in all extremities. Sensory grossly intact. Cerebellar exam normal. Normal gait. Psych: Awake, alert, with orientation to person, place and time. Behavior, mood, and affect are within normal limits. Vital Signs: 12:11 BP 112 / 69; Pulse 66; Resp 18; Temp 98.1(O); Pulse Ox 100% on R/A; mh5 13:05 BP 114 / 73; Pulse 66; Resp 16; Temp 98.2; Pulse Ox 100% ; bp MDM: 12:26 Patient medically screened. snw 14:01 HARRIS Risk Score: TOTAL SCORE = 1. Data reviewed: vital signs, nurses notes. Data snw interpreted: Pulse oximetry: on room air is 100 %. Interpretation: normal. Counseling: I had a detailed discussion with the patient and/or guardian regarding: the historical points, exam findings, and any diagnostic results supporting the discharge/admit diagnosis, the need for outpatient follow up, smoking cessation. Special discussion: Based on the patient's history, exam, and Dx evaluation, there is no indication for emergent intervention or inpatient Tx. It is understood by the patient/guardian that if the Sx's persist or worsen they need to return immediately for re-evaluation. Based on the history and exam findings, there is no indication for further emergent testing or inpatient evaluation. I discussed with the patient/guardian the need to see the primary care provider for further evaluation of the symptoms. 08/15 12:22 Order name: EKG; Complete Time: 12:22 snw 08/15 12:22 Order name: EKG - Nurse/Tech; Complete Time: 12:23 snw EC:30 Rate is 63 beats/min. Rhythm is regular. QRS [place] is Normal. OR interval is normal. QT snw interval is normal. No Q waves. T waves are Normal. No ST changes noted. Clinical impression: Normal ECG. Administered Medications: No medications were administered Disposition: 14:23 Co-signature as Attending Physician, Michael Sanchez MD. ma2 Disposition: 08/15/18 12:58 Discharged to Home. Impression: Person with feared health complaint in whom no diagnosis is made, Chest pain, unspecified. - Condition is Stable. - Discharge Instructions: Nonspecific Chest Pain. - Medication Reconciliation Form, Thank You Letter, Antibiotic Education, Prescription Opioid Use form. - Follow up: Private Physician; When: As needed; Reason: Worsening of condition. - Notes: Cardiac workup performed 08/14/18 was negative for abnormality. EKG today is normal. Vitals signs normal. Signatures: Elvi Lancaster, BAILEE-C TRACK LAYING SUPERVISOR-Csnw Javon Perez RN RN bp Michael Sanchez MD MD ma2 Corrections: (The following items were deleted from the chart) 13:09 12:58 08/15/2018 12:58 Discharged to Home. Impression: Person with feared health bp complaint in whom no diagnosis is made; Chest pain, unspecified. Condition is Stable. Forms are Medication Reconciliation Form, Thank You Letter, Antibiotic Education, Prescription Opioid Use. Follow up: Private Physician; When: As needed; Reason: Worsening of condition. snw
--- NOTE | 2018-08-15 16:48 | EKG ---
Test Date: 2018-08-15 Test Time: 12:29:57 Junior Php Developer: BERNARDINO MEASUREMENT RESULTS: Intervals: Rate: 63 NC: 116 QRSD: 104 QT: 398 QTc: 407 [place]: P: 60 NC: 116 QRS: 89 T: 70 INTERPRETIVE STATEMENTS: Normal sinus rhythm Normal ECG Compared to ECG 08/14/2018 16:30:04 No significant changes Electronically Signed On 08-15-18 16:48:21 CDT by Zuhair Gardner
== END ==
LOC: ER 12:01
DX: Z71.1 Person with feared health complaint in whom no diagnosis is made (principal); Z72.0 Tobacco use
CPT/HCPCS: 93005; 99284

== ENCOUNTER 2019-02-24 07:35 | Emergency (ER) | payer SELFPAY ==
[2019-02-24] MEDS ORDERED: TETANUS & DIPHTHERIA TOX,ADULT 0.5 ML VIAL ONE (07:57)
[2019-02-24] MEDS ORDERED: TRAMADOL HCL 50 MG TAB ONE (07:57)
[2019-02-24] MEDS ORDERED: DERMABOND SKIN ADHESIVE TOP ONE (08:32)
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
[2019-02-24] MEDS ORDERED: CEPHALEXIN 250 MG CAP ONE (09:22)
[2019-02-24] MEDS ORDERED: DIAZEPAM 5 MG TABLET ONE (09:22)
[2019-02-24 09:40] VITALS: TEMP 98.2
[2019-02-24 09:42] VITALS: BP 110/74; O2SAT 98
== END 2019-02-24 09:33 | disposition home or self-care (01) ==
LOC: ER 07:35
DX: S02.31XA Fracture of orbital floor, right side, initial encounter for closed fracture (principal); S01.411A Laceration without foreign body of right cheek and temporomandibular area, initial encounter; Y04.2XXA Assault by strike against or bumped into by another person, initial encounter; Y93.9 Activity, unspecified; Y92.89 Other specified places as the place of occurrence of the external cause; Z23 Encounter for immunization; Z72.0 Tobacco use
CPT/HCPCS: 70450; 70486; 76377; 90471; 90714; 99284